=== PATIENT | male | born 1975 | race Caucasian/White ===

== ENCOUNTER 2018-12-04 13:20 | Emergency (ER) | payer OTHER, SELFPAY ==
[2018-12-04] MEDS ORDERED: HYDROcodone/Acetaminophen 5/325 mg Tablet ONE (13:56)
[2018-12-04] MEDS ORDERED: Ketorolac Tromethamine 60 MG/2 ML VIAL ONE (13:56)
[2018-12-04] MEDS ORDERED: Acetaminophen 325 MG TAB ONE (13:56)
[2018-12-04] MEDS ORDERED: Cyclobenzaprine 10 MG TAB ONE (13:56)
== END 2018-12-04 14:27 | disposition home or self-care (01) ==
LOC: MADERS 13:20
DX: M54.5 Low back pain (principal); I10 Essential (primary) hypertension; F17.210 Nicotine dependence, cigarettes, uncomplicated
CPT/HCPCS: 96372; 99283; J1885

== ENCOUNTER 2019-05-02 11:40 | Emergency (ER) | payer SELFPAY | END 2019-05-02 12:45 | disposition home or self-care (01) | LOC: MADERS 11:40 | DX: I10 Essential (primary) hypertension (principal); F17.210 Nicotine dependence, cigarettes, uncomplicated; Z79.899 Other long term (current) drug therapy | CPT/HCPCS: 99283 ==